=== PATIENT | male | born 1975 | race Hispanic/Latino ===

== ENCOUNTER 2019-06-08 09:29 | Emergency (ER) | payer SELFPAY ==
[2019-06-08 10:53] LABS: Basophils % (Auto) 0.2 % (0.0-1.8); Eosinophils % (Auto) 0.2 % (0.0-4.3); Hematocrit 48.6 % (35.5-45.6); Hemoglobin 16.3 gm/dl (11.8-15.2); Lymphocytes # (Auto) 0.9 K/mm3 (1.2-5.4); Lymphocytes % (Auto) 8.3 % (13.4-35.0); Mean Corpuscular HGB Conc 34 % (32-34); Mean Corpuscular Volume 97 fl (84-94); Monocytes # (Auto) 0.4 K/mm3 (0.0-0.8); Monocytes % (Auto) 4.2 % (0.0-7.3); Platelet Count 245 K/mm3 (140-440)
[2019-06-08 11:12] LABS: Alanine Aminotransferase 21 units/L (7-56); Albumin 4.4 g/dL (3.9-5); BUN/Creatinine Ratio 11; Blood Urea Nitrogen 12 mg/dL (9-20); Calcium 9.3 mg/dL (8.4-10.2); Hemolysis Index 13
[2019-06-08] MEDS ORDERED: KETOROLAC 30 MG/1 ML INJ IV STA (11:19)
[2019-06-08] MEDS ORDERED: HYOSCYAMINE SUBL 0.125 MG TAB SL ONE (11:19)
[2019-06-08] MEDS ORDERED: SODIUM CHLORIDE 0.9% 1000 ML 1,000 ML IV ONE (11:19)
[2019-06-08] MEDS ORDERED: ONDANSETRON 4 MG/2 ML INJ IV STA (11:19)
[2019-06-08] MEDS ORDERED: SODIUM CHLORIDE 0.9% 1000 ML 1,000 ML ONE (11:23)
[2019-06-08 11:37] LABS: Bacteria,Urine 1+ /HPF (Negative); Bilirubin,Urine NEG (Negative); Blood,Urine LG (Negative); Color,Urine Yellow (Yellow); Mucus,Urine 1+ /HPF; Urobilinogen,Urine < 2.0 mg/dL (<2.0)
[2019-06-08 11:44] LABS: RBC,Urine > 182.0 /HPF (0.0-6.0)
--- NOTE | 2019-06-08 11:52 | Emergency Department Report ---
ED Abdominal Pain HPI - General Chief Complaint: Abdominal Pain Stated Complaint: RT SIDE RIB/ABD PAIN EXTREME Time Seen by Provider: 06/08/19 11:18 Source: patient Mode of arrival: Ambulatory Limitations: No Limitations - History of Present Illness MD Complaint: abdominal pain, flank pain -: Sudden, days(s) Location: LLQ, L flank Radiation: LLQ Severity: moderate, severe Quality: stabbing, dull, burning Consistency: intermittent Improves With: nothing Worsens With: movement Associated Symptoms: nausea, vomiting. denies: constipation, dysuria, hematemesis, melena, hematuria, syncope - Related Data Previous Rx's Medication Instructions Recorded Last Taken Type Ciprofloxacin HCl [Ciprofloxacin 500 mg PO Q12HR #28 tab 06/08/19 Unknown Rx TAB] HYDROcodone/APAP 10-325 [[place] 1 each PO Q6HR PRN #10 tablet 06/08/19 Unknown Rx 10/325] Tamsulosin [Flomax] 0.4 mg PO QDAY #10 cap 06/08/19 Unknown Rx Allergies Allergy/AdvReac Type Severity Reaction Status Date / Time No Known Allergies Allergy Verified 06/08/19 09:30 ED Review of Systems ROS: Stated complaint: RT SIDE RIB/ABD PAIN EXTREME Other details as noted in HPI Comment: All other systems reviewed and negative ED Past Medical Hx - Past Medical History Previous Medical History?: No - Surgical History Past Surgical History?: Yes Additional Surgical History: LLE surgery - Social History Smoking Status: Current Every Day Smoker Substance Use Type: None - Medications Home Medications: Home Medications Medication Instructions Recorded Confirmed Last Taken Type Ciprofloxacin HCl [Ciprofloxacin 500 mg PO Q12HR #28 tab 06/08/19 Unknown Rx TAB] HYDROcodone/APAP 10-325 [[place] 1 each PO Q6HR PRN #10 tablet 06/08/19 Unknown Rx 10/325] Tamsulosin [Flomax] 0.4 mg PO QDAY #10 cap 06/08/19 Unknown Rx ED Physical Exam - General Limitations: No Limitations General appearance: alert, in no apparent distress - Head Head exam: Present: atraumatic, normocephalic - Eye Eye exam: Present: normal appearance - ENT ENT exam: Present: mucous membranes moist - Neck Neck exam: Present: normal inspection - Respiratory Respiratory exam: Present: normal lung sounds bilaterally. Absent: respiratory distress - Cardiovascular Cardiovascular Exam: Present: regular rate, normal rhythm. Absent: systolic murmur, diastolic murmur, rubs, gallop - GI/Abdominal GI/Abdominal exam: Present: soft, tenderness (LLQ), normal bowel sounds - Rectal Rectal exam: Present: deferred - Extremities Exam Extremities exam: Present: normal inspection - Back Exam Back exam: Present: normal inspection, CVA tenderness (L) - Neurological Exam Neurological exam: Present: alert, oriented X3 - Psychiatric Psychiatric exam: Present: normal affect, normal mood - Skin Skin exam: Present: warm, dry, intact, normal color. Absent: rash ED Course Vital Signs 06/08/19 06/08/19 06/08/19 09:38 11:42 12:12 Temperature 97.4 F L Pulse Rate 62 Respiratory 16 17 16 Rate Blood Pressure 111/76 Blood Pressure [Left] O2 Sat by Pulse 97 Oximetry 06/08/19 06/08/19 13:42 14:01 Temperature 98.6 F Pulse Rate 60 Respiratory 16 18 Rate Blood Pressure Blood Pressure 124/88 [Left] O2 Sat by Pulse 96 Oximetry ED Medical Decision Making - Lab Data Result diagrams: 06/08/19 10:19 06/08/19 10:19 - Radiology Data Radiology results: report reviewed Findings [facility] [address] [place] [address] Cat Scan Report Signed Patient: MORENO GREGORY MR#: [id number] : 1975 Acct:[id number] Age/Sex: 43 / M ADM Date: 06/08/19 Loc: ED Attending Dr: Ordering Physician: RENO WELLS Date of Service: 06/08/19 Procedure(s): CT abdomen pelvis w con Accession Number(s): [id number] cc: RENO WELLS CT ABDOMEN AND PELVIS WITH CONTRAST HISTORY: Lower abdominal pain. COMPARISON: None TECHNIQUE: Routine abdominal and pelvic CT exam performed following intravenous contrast administration. The patient received 100 mL of IV Omnipaque 300. All CT scans at this location are performed using CT dose reduction for ALARA by means of automated exposure control. FINDINGS: CT ABDOMEN: Lung Bases: No significant abnormality. Liver: No significant abnormality. Biliary: No significant abnormality. Spleen: No significant abnormality. Unenlarged. Pancreas: No significant abnormality. Adrenals: No significant abnormality. Kidneys: There is mild left hydronephrosis due to a tiny 2 mm proximal left ureteral stone. No additional urinary stones are identified. There is a 1 cm simple cyst in the lateral right renal cortex. Lymphatics: No lymphadenopathy. Vasculature: No significant abnormality. Bowel/Peritoneum: No significant abnormality. No free air. No free fluid. Normal appendix. CT PELVIC: : No significant abnormality. Lymphatics: No lymphadenopathy. Osseous Structures: No aggressive appearing osseous lesions. Additional Findings: None IMPRESSION: 1. Mild left hydronephrosis due to a 2 mm proximal left ureteral stone. Signer Name: Edgar Boothe MD Signed: 06/08/2019 12:58 PM Workstation Name: [id number] Transcribed By: BERTIN Dictated By: Edgar Boothe MD Electronically Authenticated By: Edgar Boothe MD Signed Date/Time: 06/08/191257 DD/ 54 TD/TT: - Medical Decision Making Clinically the patient presents with nephrolithasis. IV pain medications, antiemetics, and IV fluids were given. A CT Abdomen/Pelvis was obtained for concern for a possible obstructing kidney stone and to rule out other pathologic conditions. The CT confirmed revealed a stone at 2mm to left ureter. The patient's labs were relatively benign. the patient improved significantly. The patient is referred to the on-call urologist for follow up and is discharged with oral narcotics for pain control, Flomax, antiemetics, and given the following return precautions: Fever > 100.5, pain not controlled with narcotics, vomiting or any other concerns and to strain the urine Critical care attestation.: If time is entered above; I have spent that time in minutes in the direct care of this critically ill patient, excluding procedure time. ED Disposition Clinical Impression: Renal calculi Disposition: Z-07 PAT REG,NO TRIAGE Is pt being admited?: No Does the pt Need Aspirin: No Condition: Stable Instructions: Kidney Stones (ED), Ureteroscopy (GEN), How to Strain Your Urine (ED), Flank Pain (ED) Additional Instructions: Follow up with your primary doctor within 2-3 days. Follow up with a Urologist this week (we will give you a list of urologists, but make sure they accept your insurance). Please call as soon as possible for an appointment. You will be given a prescription for Flomax (0.4mg daily) . Please molded goods spot picker the medication as soon as possible and take as directed. Use Motrin (also called Ibuprofen or Advil) 400 mg every 6 hours as needed for pain. If you have any stomach discomfort while taking Motrin, you can use TUMS to help. All of these medications can be purchased without a prescription. Drink plenty of fluids, avoid caffeine & alcohol. Be sure to strain you urine to confirm passing of the calculi (stone). You were given a copy of the results from any tests performed today in the Emergency Department which have results available. Show these to your doctor(s). Some of the tests we sent may not have results yet so please have your doctor to contact the hospital to follow up on all results. Please continue taking your home medications as directed. Do not use alcohol when taking any medication (especially antibiotics, Tylenol or other pain medication) unless you check with the doctor or pharmacist. Any worsening pain, fever, chills, difficulty urinating, or any other concerns, please see your doctor immediately or return to Emergency Department right away. Prescriptions: Ciprofloxacin HCl [Ciprofloxacin TAB] 500 mg PO Q12HR #28 tab Tamsulosin [Flomax] 0.4 mg PO QDAY #10 cap HYDROcodone/APAP 10-325 [[place] 10/325] 1 each PO Q6HR PRN #10 tablet PRN Reason: Pain Referrals: [facility] [Provider Group] - 3-5 Days [facility] [Provider Group] - 3-5 Days
--- NOTE | 2019-06-08 13:02 | Cat Scan Report ---
CT ABDOMEN AND PELVIS WITH CONTRAST HISTORY: Lower abdominal pain. COMPARISON: None TECHNIQUE: Routine abdominal and pelvic CT exam performed following intravenous contrast administrat ion. The patient received 100 mL of IV Omnipaque 300. All CT scans at this location are performed usi ng CT dose reduction for ALARA by means of automated exposure control. FINDINGS: CT ABDOMEN: Lung Bases: No significant abnormality. Liver: No significant abnormality. Biliary: No significant abnormality. Spleen: No significant abnormality. Unenlarged. Pancreas: No significant abnormality. Adrenals: No significant abnormality. Kidneys: There is mild left hydronephrosis due to a tiny 2 mm proximal left ureteral stone. No additi onal urinary stones are identified. There is a 1 cm simple cyst in the lateral right renal cortex. Lymphatics: No lymphadenopathy. Vasculature: No significant abnormality. Bowel/Peritoneum: No significant abnormality. No free air. No free fluid. Normal appendix. CT PELVIC: : No significant abnormality. Lymphatics: No lymphadenopathy. Osseous Structures: No aggressive appearing osseous lesions. Additional Findings: None IMPRESSION: 1. Mild left hydronephrosis due to a 2 mm proximal left ureteral stone. Signer Name: Edgar Boothe MD Signed: 06/08/2019 12:58 PM Workstation Name: [id number]
[2019-06-08] MEDS ORDERED: levoFLOXacin 500 MG TAB PO ONE (13:36)
[2019-06-08] MEDS ORDERED: oxyCODONE /ACETAMINOPHEN 5-325MG TAB PO ONE (13:41)
[2019-06-08] MEDS ORDERED: oxyCODONE /ACETAMINOPHEN 5-325MG TAB ONE (13:42)
[2019-06-08 14:04] VITALS: BP 124/88
== END 2019-06-08 14:40 | disposition left against medical advice (07) ==
LOC: ED 09:29
DX: N20.0 Calculus of kidney (principal); R11.2 Nausea with vomiting, unspecified; F17.200 Nicotine dependence, unspecified, uncomplicated; Z79.899 Other long term (current) drug therapy
CPT/HCPCS: 36415; 74177; 80053; 81001; 83690; 85025; 87086; 96361; 96374; 96375; 99284; J1885; J2405; J7030; Q9967

== ENCOUNTER 2019-09-22 08:56 | Emergency (ER) | payer SELFPAY ==
[2019-09-22 10:33] LABS: BUN/Creatinine Ratio 16; Blood Urea Nitrogen 14 mg/dL (9-20); Calcium 9.8 mg/dL (8.4-10.2); Hemolysis Index 5
[2019-09-22 11:08] LABS: Hematocrit 52.3 % (35.5-45.6); Hemoglobin 17.5 gm/dl (11.8-15.2); Mean Corpuscular HGB Conc 34 % (32-34); Mean Corpuscular Volume 97 fl (84-94); Platelet Count 273 K/mm3 (140-440); Red Blood Count 5.37 M/mm3 (3.65-5.03); Red Cell Distribution Width 14.2 % (13.2-15.2)
[2019-09-22 11:51] LABS: Basophils % (Manual) 0 % (0.0-1.8); Eosinophils % (Manual) 0 % (0.0-4.3); Total Cells Counted 100
[2019-09-22 11:51] LABS: Bilirubin,Urine NEG (Negative); Blood,Urine SM (Negative); Color,Urine Yellow (Yellow); Mucus,Urine FEW /HPF; Protein,Urine <15 mg/dL mg/dL (Negative); Urobilinogen,Urine < 2.0 mg/dL (<2.0)
[2019-09-22 11:52] LABS: Amphetamine Screen,Urine PRESUMPTIVE NEGATIVE; Cannabinoid Screen,Urine PRESUMPTIVE NEGATIVE; Cocaine Screen,Urine PRESUMPTIVE NEGATIVE; Methadone Screen,Urine PRESUMPTIVE NEGATIVE; Opiate Screen,Urine PRESUMPTIVE NEGATIVE
[2019-09-22 11:52] LABS: Platelet Estimate Consistent w Auto; RBC Morphology Normal
--- NOTE | 2019-09-22 12:13 | Emergency Department Report ---
ED Psych HPI - General Chief Complaint: Psych Stated Complaint: TRIED TO HURT HIMSELF Time Seen by Provider: 09/22/19 11:49 Source: patient Mode of arrival: Ambulatory Limitations: No Limitations - History of Present Illness Initial Comments: Mr. Pichardo is a 44-year-old male with history of major depressive disorder who presents with acute depression and inclination to cut himself with a knife. His brought him to the emergency department per private auto after discovering her with a knife with intent to harm self. Mr. Pichardo has had multiple social stressors. 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 His has been recently ill. He has not had depression treatment in quite some time. He does have a history of previous suicide attempt. There is a family history of depression. MD Complaint: suicidal ideation -: Gradual, days(s) (Several days) Associated Psychiatric Symptoms: depression, suicidal ideation History of same: Yes Quality: constant Improves With: none Worsens With: none Context: significant life stressor If Self Harm: admits thoughts of, has plan, has acted on plan - Related Data Previous Rx's Medication Instructions Recorded Last Taken Type Ciprofloxacin HCl [Ciprofloxacin 500 mg PO Q12HR #28 tab 06/08/19 Unknown Rx TAB] HYDROcodone/APAP 10-325 [[place] 1 each PO Q6HR PRN #10 tablet 06/08/19 Unknown Rx 10/325] Tamsulosin [Flomax] 0.4 mg PO QDAY #10 cap 06/08/19 Unknown Rx Allergies Allergy/AdvReac Type Severity Reaction Status Date / Time No Known Allergies Allergy Verified 06/08/19 09:30 ED Review of Systems ROS: Stated complaint: TRIED TO HURT HIMSELF Other details as noted in HPI Comment: All other systems reviewed and negative Constitutional: denies: fever, malaise Respiratory: denies: cough Cardiovascular: denies: chest pain ED Past Medical Hx - Past Medical History Previous Medical History?: Yes Hx Psychiatric Treatment: Yes Additional medical history: Major depressive disorder - Surgical History Past Surgical History?: Yes Additional Surgical History: LLE surgery - Family History Family history: other (Depression) - Social History Smoking Status: Current Every Day Smoker Substance Use Type: Alcohol - Medications Home Medications: Home Medications Medication Instructions Recorded Confirmed Last Taken Type Ciprofloxacin HCl [Ciprofloxacin 500 mg PO Q12HR #28 tab 06/08/19 Unknown Rx TAB] HYDROcodone/APAP 10-325 [[place] 1 each PO Q6HR PRN #10 tablet 06/08/19 Unknown Rx 10/325] Tamsulosin [Flomax] 0.4 mg PO QDAY #10 cap 06/08/19 Unknown Rx ED Physical Exam - General Limitations: No Limitations General appearance: alert, in no apparent distress - Head Head exam: Present: atraumatic, normocephalic - Eye Eye exam: Present: normal appearance - ENT ENT exam: Present: mucous membranes moist - Neck Neck exam: Present: normal inspection - Respiratory Respiratory exam: Present: normal lung sounds bilaterally. Absent: respiratory distress, wheezes, rales, rhonchi - Cardiovascular Cardiovascular Exam: Present: regular rate, normal rhythm, normal heart sounds. Absent: systolic murmur, diastolic murmur, rubs, gallop - GI/Abdominal GI/Abdominal exam: Present: soft. Absent: distended, tenderness, guarding, rebound - Rectal Rectal exam: Present: deferred - Extremities Exam Extremities exam: Present: normal inspection - Neurological Exam Neurological exam: Present: alert, oriented X3 - Psychiatric Psychiatric exam: Present: normal affect, depressed, suicidal ideation - Skin Skin exam: Present: warm, dry, intact, normal color. Absent: rash ED Course Vital Signs 09/22/19 09:10 Temperature 98.2 F Pulse Rate 92 H Respiratory 18 Rate Blood Pressure 152/103 O2 Sat by Pulse 97 Oximetry ED Medical Decision Making - Lab Data Result diagrams: 09/22/19 09:44 09/22/19 09:44 Laboratory Results - last 24 hr 09/22/19 09/22/19 09/22/19 09:44 09:44 09:44 WBC RBC Hgb Hct MCV MCH MCHC RDW Plt Count Lymph % (Auto) [place] % (Auto) Eos % (Auto) Baso % (Auto) Lymph # [place] # Eos # Baso # Add Manual Diff Total Counted Seg Neutrophils % Seg Neuts % (Manual) Band Neutrophils % Lymphocytes % (Manual) Reactive Lymphs % (Man) Monocytes % (Manual) Eosinophils % (Manual) Basophils % (Manual) Metamyelocytes % Myelocytes % Promyelocytes % Blast Cells % Nucleated RBC % Seg Neutrophils # Seg Neutrophils # Man Band Neutrophils # Lymphocytes # (Manual) Abs React Lymphs (Man) Monocytes # (Manual) Eosinophils # (Manual) Basophils # (Manual) Metamyelocytes # Myelocytes # Promyelocytes # Blast Cells # WBC Morphology Hypersegmented Neuts Hyposegmented Neuts Hypogranular Neuts Smudge Cells Toxic Granulation Toxic Vacuolation Dohle Bodies Pelger-Huet Anomaly Katherine Rods Platelet Estimate Clumped Platelets Plt Clumps, EDTA Large Platelets Giant Platelets Platelet Satelliting Plt Morphology Comment RBC Morphology Dimorphic RBCs Polychromasia Hypochromasia Poikilocytosis Anisocytosis Microcytosis Macrocytosis Spherocytes Pappenheimer Bodies Sickle Cells Target Cells Tear Drop Cells Ovalocytes Helmet Cells [place] Bodies [place] Rings Nenita Cells Bite Cells Crenated Cell Elliptocytes Acanthocytes (Spur) Rouleaux Hemoglobin C Crystals Schistocytes Malaria parasites Zeke Bodies Hem Pathologist Commnt Sodium 143 Potassium 4.3 Chloride 104.3 Carbon Dioxide 22 Anion Gap 21 BUN 14 Creatinine 0.9 Estimated GFR > 60 BUN/Creatinine Ratio 16 Glucose 104 H Calcium 9.8 Urine Color Urine Turbidity Urine pH Ur Specific [place] Urine Protein Urine Glucose (UA) Urine Ketones Urine Blood Urine Nitrite Urine Bilirubin Urine Urobilinogen Ur Leukocyte Esterase Urine WBC (Auto) Urine RBC (Auto) Urine Mucus Salicylates < 0.3 L Urine Opiates Screen Urine Methadone Screen Acetaminophen < 5.0 L Ur Barbiturates Screen Ur Phencyclidine Scrn Ur Amphetamines Screen Urine Cocaine Screen U Marijuana (THC) Screen Plasma/Serum Alcohol 09/22/19 09/22/19 09/22/19 09:44 09:44 11:17 WBC 5.6 RBC 5.37 H Hgb 17.5 H Hct 52.3 H MCV 97 H MCH 33 H MCHC 34 RDW 14.2 Plt Count 273 Lymph % (Auto) Senior Information Systems Architect [place] % (Auto) Senior Information Systems Architect Eos % (Auto) Senior Information Systems Architect Baso % (Auto) Senior Information Systems Architect Lymph # Senior Information Systems Architect [place] # Senior Information Systems Architect Eos # Senior Information Systems Architect Baso # Senior Information Systems Architect Add Manual Diff Complete Total Counted 100 Seg Neutrophils % Senior Information Systems Architect Seg Neuts % (Manual) 70.0 Band Neutrophils % 0 Lymphocytes % (Manual) 24.0 Reactive Lymphs % (Man) 0 Monocytes % (Manual) 6.0 Eosinophils % (Manual) 0 Basophils % (Manual) 0 Metamyelocytes % 0 Myelocytes % 0 Promyelocytes % 0 Blast Cells % 0 Nucleated RBC % Not Reportable Seg Neutrophils # Senior Information Systems Architect Seg Neutrophils # Man 3.9 Band Neutrophils # 0.0 Lymphocytes # (Manual) 1.3 Abs React Lymphs (Man) 0.0 Monocytes # (Manual) 0.3 Eosinophils # (Manual) 0.0 Basophils # (Manual) 0.0 Metamyelocytes # 0.0 Myelocytes # 0.0 Promyelocytes # 0.0 Blast Cells # 0.0 WBC Morphology Not Reportable Hypersegmented Neuts Not Reportable Hyposegmented Neuts Not Reportable Hypogranular Neuts Not Reportable Smudge Cells Not Reportable Toxic Granulation Not Reportable Toxic Vacuolation Not Reportable Dohle Bodies Not Reportable Pelger-Huet Anomaly Not Reportable Katherine Rods Not Reportable Platelet Estimate Consistent w auto Clumped Platelets Not Reportable Plt Clumps, EDTA Not Reportable Large Platelets Not Reportable Giant Platelets Not Reportable Platelet Satelliting Not Reportable Plt Morphology Comment Not Reportable RBC Morphology Normal Dimorphic RBCs Not Reportable Polychromasia Not Reportable Hypochromasia Not Reportable Poikilocytosis Not Reportable Anisocytosis Not Reportable Microcytosis Not Reportable Macrocytosis Not Reportable Spherocytes Not Reportable Pappenheimer Bodies Not Reportable Sickle Cells Not Reportable Target Cells Not Reportable Tear Drop Cells Not Reportable Ovalocytes Not Reportable Helmet Cells Not Reportable [place] Bodies Not Reportable [place] Rings Not Reportable [place] Cells Not Reportable Bite Cells Not Reportable Crenated Cell Not Reportable Elliptocytes Not Reportable Acanthocytes (Spur) Not Reportable Rouleaux Not Reportable Hemoglobin C Crystals Not Reportable Schistocytes Not Reportable Malaria parasites Not Reportable Zeke Bodies Not Reportable Hem Pathologist Commnt No Sodium Potassium Chloride Carbon Dioxide Anion Gap BUN Creatinine Estimated GFR BUN/Creatinine Ratio Glucose Calcium Urine Color Yellow Urine Turbidity Clear Urine pH 6.0 Ur Specific [place] 1.017 Urine Protein <15 mg/dl Urine Glucose (UA) Neg Urine Ketones Tr Urine Blood Sm Urine Nitrite Neg Urine Bilirubin Neg Urine Urobilinogen < 2.0 Ur Leukocyte Esterase Neg Urine WBC (Auto) 1.0 Urine RBC (Auto) 6.0 Urine Mucus Few Salicylates Urine Opiates Screen Urine Methadone Screen Acetaminophen Ur Barbiturates Screen Ur Phencyclidine Scrn Ur Amphetamines Screen Urine Cocaine Screen U Marijuana (THC) Screen Plasma/Serum Alcohol < 0.01 09/22/19 11:17 WBC RBC Hgb Hct MCV MCH MCHC RDW Plt Count Lymph % (Auto) [place] % (Auto) Eos % (Auto) Baso % (Auto) Lymph # [place] # Eos # Baso # Add Manual Diff Total Counted Seg Neutrophils % Seg Neuts % (Manual) Band Neutrophils % Lymphocytes % (Manual) Reactive Lymphs % (Man) Monocytes % (Manual) Eosinophils % (Manual) Basophils % (Manual) Metamyelocytes % Myelocytes % Promyelocytes % Blast Cells % Nucleated RBC % Seg Neutrophils # Seg Neutrophils # Man Band Neutrophils # Lymphocytes # (Manual) Abs React Lymphs (Man) Monocytes # (Manual) Eosinophils # (Manual) Basophils # (Manual) Metamyelocytes # Myelocytes # Promyelocytes # Blast Cells # WBC Morphology Hypersegmented Neuts Hyposegmented Neuts Hypogranular Neuts Smudge Cells Toxic Granulation Toxic Vacuolation Dohle Bodies Pelger-Huet Anomaly Katherine Rods Platelet Estimate Clumped Platelets Plt Clumps, EDTA Large Platelets Giant Platelets Platelet Satelliting Plt Morphology Comment RBC Morphology Dimorphic RBCs Polychromasia Hypochromasia Poikilocytosis Anisocytosis Microcytosis Macrocytosis Spherocytes Pappenheimer Bodies Sickle Cells Target Cells Tear Drop Cells Ovalocytes Helmet Cells [place] Bodies [place] Rings Nenita Cells Bite Cells Crenated Cell Elliptocytes Acanthocytes (Spur) Rouleaux Hemoglobin C Crystals Schistocytes Malaria parasites Zeke Bodies Hem Pathologist Commnt Sodium Potassium Chloride Carbon Dioxide Anion Gap BUN Creatinine Estimated GFR BUN/Creatinine Ratio Glucose Calcium Urine Color Urine Turbidity Urine pH Ur Specific [place] Urine Protein Urine Glucose (UA) Urine Ketones Urine Blood Urine Nitrite Urine Bilirubin Urine Urobilinogen Ur Leukocyte Esterase Urine WBC (Auto) Urine RBC (Auto) Urine Mucus Salicylates Urine Opiates Screen Presumptive negative Urine Methadone Screen Presumptive negative Acetaminophen Ur Barbiturates Screen Presumptive negative Ur Phencyclidine Scrn Presumptive negative Ur Amphetamines Screen Presumptive negative Urine Cocaine Screen Presumptive negative U Marijuana (THC) Screen Presumptive negative Plasma/Serum Alcohol - Medical Decision Making Mr. Pichardo presents with acute depression suicidal ideation and attempt to harm himself with a knife. 1013 voluntary protocol instituted. I have consulted our psychiatry team. Awaiting treatment recommendations. I have reviewed the labs obtained including CBC chemistry serum toxicology urinalysis and urine tox screen. All lab studies are within normal limits. Mr. Pichardo is medically clear for psychiatric care. Critical care attestation.: If time is entered above; I have spent that time in minutes in the direct care of this critically ill patient, excluding procedure time. ED Disposition Clinical Impression: Acute depression, Suicidal ideation Condition: Stable
[2019-09-22 12:34] LABS: Benzodiazepines Screen,Urine PRESUMPTIVE POSITIVE
--- NOTE | 2019-09-23 11:53 | Consultation ---
History of Present Illness - Reason for Consult Consult date: 09/23/19 Reason for consult: suicidal - History of Present Psychiatric Illness Gilberto Pichardo is a 44y/o male patient who was brought to the ER by his after he had thoughts of harming himself with a knife. He is a/o x 3. He makes good eye contact. He is calm and cooperative. The patient states, "I was feeling overwhelmed and thinking about suicide." He says he "has a lot of stressors and work and with family." He denies SI/HI at present but states, "I got a lot of scenes constantly playing in my mind about what could happen." The patient says "I have a hard time focusing on anything." He says he has a history of "depression" but hasn't seen a psychiatrist in "years." He says he "was started on prozac back then but it didn't help." The patient denies any history of illicit drug. He says he "drank vodka daily to go into a deep sleep." The patient says his "last drink was four or five days ago." He denies any withdrawal symptoms. He denies hallucinations of any kind. PAST PSYCHIATRIC HISTORY: Diagnoses: depression Suicide attempts or Self-harm behavior: Denies, only thoughts years ago Prior psychiatric hospitalizations: Denies Substance Abuse history: Denies Previous psychiatric medications tried: Prozac Outpatient treatment: Denies PAST MEDICAL HISTORY: None reported Family Psychiatric History None reported or documented SOCIAL HISTORY Marital Status: Living Arrangements: With spouse Employment Status: Self employed Access to guns/weapons: Denies Education: Financial Advisor History of Abuse: alcohol ROS: Constitutional: Negative for weight loss ENT: Negative for stridor Respiratory: Negative for cough or hemoptysis All other systems reviewed and are negative MENTAL STATUS General Appearance: Dressed appropriately Behavior: calm and cooperative, good eye contact Mood: "overwhelmed" Affect: Congruent Thought Process: Goal-directed Speech: Normal tone and pace Suicidal Ideation: Yes Homicidal Ideation: Denies Hallucinations: Denies Delusions: Denies Insight and Judgment: Limited Memory/Cognition: Limited Diagnoses: Major Depressive Disorder, Severe w/o Psychotic Features Plan Assess CIWA scale Zoloft 25mg po daily to decrease depressive symptoms Abilify 5mg po daily to decrease depressive symptoms Doxepin 10mg po qhs to induce sleep Geodon 10mg IM q4h prn agitation Medical: Per primary Sitter: Defer to primary Disposition: The patient meets the requirement for acute hospitalization at this time. He may transfer to an acute psychiatric facility once medically cleared. Will continue to follow the patient until he is transferred or his condition improves enough for discharge Please call with any questions or concerns. Thank you for this consult. Medications and Allergies Allergies Allergy/AdvReac Type Severity Reaction Status Date / Time No Known Allergies Allergy Verified 06/08/19 09:30 Home Medications Medication Instructions Recorded Confirmed Last Taken Type Melatonin 1 mg PO QHS 09/22/19 09/22/19 Unknown History Cassie's Wort 1 tab PO QHS 09/22/19 09/22/19 Unknown History Mental Status Exam - Vital signs Last Vital Signs Temp 98.7 F 09/23/19 08:00 Pulse 71 09/23/19 08:00 Resp 20 09/23/19 08:00 BP 112/82 09/23/19 08:00 Pulse Ox 96 09/23/19 08:00 Results Result Diagrams: 09/22/19 09:44 09/22/19 09:44 Abnormal lab results 09/22/19 Range/Units 09:44 RBC 5.37 H (3.65-5.03) M/mm3 Hgb 17.5 H (11.8-15.2) gm/dl Hct 52.3 H (35.5-45.6) % MCV 97 H (84-94) fl MCH 33 H (28-32) pg All other labs normal.
[2019-09-23] MEDS ORDERED: ZIPRASIDONE MESYLATE 20 MG VIAL IM PRN (11:56)
[2019-09-23] MEDS: ARIPiprazole 5 MG TAB PO SCH (13:46)
[2019-09-23] MEDS: SERTRALINE 25 MG TAB PO SCH (13:46)
[2019-09-23] MEDS ORDERED: DOXEPIN 10 MG CAP PO SCH (22:00)
[2019-09-24 08:40] VITALS: BP 114/76
[2019-09-24] MEDS: ARIPiprazole 5 MG TAB PO SCH (10:27)
[2019-09-24] MEDS: SERTRALINE 25 MG TAB PO SCH (10:27)
--- NOTE | 2019-09-24 13:38 | Progress Note ---
Subjective - Reason for Consult Consult date: 09/24/19 Reason for consult: suicidal thoughts - Chief Complaint Chief complaint: Reviewed the patient's medical record and discussed the patient's progress with the nursing staff. The nurse caring for the patient states the patient has been calm, cooperative and hasn't expressed any SI/HI. During my interview with Mr. Pichardo, he is sitting on side of the cot. He is a/o x 3. He makes good eye contact. He is actually smiling some. He says, "I'm glad to see you. I'm actually a lot better." The patient says, "but the sleep medication you have me makes me have dreams." He then laughs. The patient denies SI/HI, stating "I've been sitting here thinking. Looking back on things, they weren't that bad." He says, "I realize now that doing wasn't a smart move to make." The patient states, "I was pretty much just walking around with the knife. I didn't attempt to cut myself." The patient states "I'm ready to go home. 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 He says he "slept good and a little sleepy now." He denies any problems with his appetite. I asked the patient for permission to speak with his spouse. He gave consent for me to do so. I called the patient's spouse, Kelly, who states she has no fear or reservations of the patient returning home. Mrs. Pichardo states, "I spoke with him yesterday and he says he regrets it. I believe him and believe that he will never do that again." ROS: Constitutional: Negative for weight loss ENT: Negative for stridor Respiratory: Negative for cough or hemoptysis All other systems reviewed and are negative MENTAL STATUS General Appearance: Dressed appropriately Behavior: calm and cooperative, good eye contact Mood: "overwhelmed" Affect: Congruent Thought Process: Goal-directed Speech: Normal tone and pace Suicidal Ideation: Yes Homicidal Ideation: Denies Hallucinations: Denies Delusions: Denies Insight and Judgment: Limited Memory/Cognition: Limited Diagnoses: Major Depressive Disorder, Severe w/o Psychotic Features Plan D/C 1013 Scripts given Zoloft 25mg po daily to decrease depressive symptoms Abilify 5mg po daily to decrease depressive symptoms Trazodone 50mg po qhs Medical: Per primary Sitter: Defer to primary Disposition: The patient does not meet the requirement for acute hospitalization at this time. He may discharge home with spouse, Kelly, once medically cleared. Mr. Pichardo denies SI/HI or any fear or endangering feelings. He also denies any psychosis. The patient and his spouse understand that if suicidal or homicidal thoughts are to arise they should seek immediate assistance, including but not limited to suicide hotline, 911 and/or ER. The patient to follow up with outpatient psych in 7 to 14 days upon discharge [facility] to give the patient resources for outpatient psychiatry and further discuss safety plan. The treatment plan has been discussed with Mr. Pichardo and his spouse, Kelly, including benefits and side effects of medications. They both verbalize understanding and agreement of plan. Will sign off. Please call with any questions or concerns. Thank you for this consult. Mental Status Exam - Vital signs Last Vital Signs Temp 98.5 F 09/24/19 08:00 Pulse 71 09/24/19 08:00 Resp 18 09/24/19 08:00 BP 114/76 09/24/19 08:00 Pulse Ox 97 09/24/19 08:00
== END 2019-09-24 15:50 | disposition home or self-care (01) ==
LOC: ED 08:56 → EEVIPCON 08:56 → ED 09-24 15:50
DX: F32.9 Major depressive disorder, single episode, unspecified (principal); R45.851 Suicidal ideations; F17.200 Nicotine dependence, unspecified, uncomplicated; Z79.899 Other long term (current) drug therapy
CPT/HCPCS: 36415; 80048; 80307; 80320; 81001; 85007; 85025; G0480